=== PATIENT | female | born 1985 | race Caucasian/White ===

== ENCOUNTER 2018-09-15 01:09 | Inpatient (IN) | payer OTHER, BC ==
[2018-09-15] MEDS: SOD CHLORIDE 0.9% 1,000 ML IV ×4 (02:44→16:09)
[2018-09-15] MEDS: KETOROLAC 15 MG INJ IV (02:55)
[2018-09-15] MEDS: ONDANSETRON 4 MG INJ IV (02:55)
[2018-09-15 02:57] LABS: ADD MAN DIFF? NO
[2018-09-15 02:58] LABS: BASOPHILS % 0.2 % (0.0-2.0); HEMOGLOBIN 11.3 g/dl (12.0-16.0); LYMPHOCYTES # 1.1 10^3/ul (0.8-2.9); LYMPHOCYTES % 5.3 % (15.0-51.0); MEAN CORPUSCULAR HEMOGLOBIN 28.4 pg (29.0-33.0); MEAN CORPUSCULAR HGB CONC 32.3 g/dl (32.0-37.0); MEAN CORPUSCULAR VOLUME 87.9 fl (82.0-101.0); MEAN PLATELET VOLUME 9.7 fl (7.4-10.4); MONOCYTE # 1.1 10^3/ul (0.3-0.9); MONOCYTES % 5.1 % (0.0-11.0); NEUTROPHIL # 18.4 10^3/ul (1.6-7.5); NEUTROPHILS % 88.3 % (39.0-77.0); PLATELET COUNT 223 10^3/UL (140-415); RED BLOOD COUNT 3.98 10^6/ul (4.20-5.40); RED CELL DISTRIBUTION WIDTH 14.5 % (11.5-14.5)
[2018-09-15 02:58] LABS: WHITE BLOOD COUNT 20.8 10^3/ul (4.8-10.8)
[2018-09-15 03:02] LABS: POSITIVE DIFF @See below
[2018-09-15 03:17] LABS: INR 1.06; PROTIME 13.9 Sec (11.9-14.9); PT RATIO 1.1
[2018-09-15 03:26] LABS: ADD UMIC YES; UR ASCORBIC ACID NEGATIVE (NEGATIVE); UR BILIRUBIN (Dip) NEGATIVE (NEGATIVE); UR BLOOD (Dip) 1+ mg/dL (NEGATIVE); UR CLARITY SLIGHTLY CLOUDY (CLEAR); UR COLOR YELLOW (YELLOW); UR GLUCOSE (Dip) NEGATIVE (NEGATIVE); UR KETONES (Dip) 1+ mg/dL (NEGATIVE); UR LEUKOCYTE ESTERASE (Dip) 2+ Leu/ul (NEGATIVE); UR NITRITE (Dip) NEGATIVE (NEGATIVE); UR RBC 7 /HPF (0-5); UR SPECIFIC GRAVITY (Dip) 1.016 (1.003-1.030); UR SQUAMOUS EPITHELIAL CELL FEW /HPF (FEW); UR TOTAL PROTEIN (Dip) 1+ mg/dl (NEGATIVE); UR UROBILINOGEN (Dip) NEGATIVE (NEGATIVE); UR WBC 70 /HPF (0-5)
[2018-09-15 03:27] LABS: ALANINE AMINOTRANSFERASE 53 IU/L (13-69); ALBUMIN 3.4 g/dl (3.3-4.9); ALBUMIN/GLOBULIN RATIO 0.97; ALKALINE PHOSPHATASE 116 IU/L (42-121); ANION GAP 9 (5-13); ASPARTATE AMINO TRANSFERASE 50 IU/L (15-46); BILIRUBIN,INDIRECT 0.3 mg/dl (0-1.1); BILIRUBIN,TOTAL 0.3 mg/dl (0.2-1.3); BLOOD UREA NITROGEN 11 mg/dl (7-20); CALCIUM 8.8 mg/dl (8.4-10.2); CARBON DIOXIDE 20 mmol/L (21-31); CHLORIDE 108 mmol/L (97-110); CREATININE 0.72 mg/dl (0.44-1.00); Estimated GFR > 60 mL/min (>60); GLUCOSE 111 mg/dl (70-220); LIPASE 28 U/L (23-300); SODIUM 137 mmol/L (135-144); TOTAL PROTEIN 6.9 g/dl (6.1-8.1)
[2018-09-15] MEDS: PIPER-TAZO 3.375 GM IV (PMX) 100 ML IVPB (05:27)
[2018-09-15] MEDS ORDERED: BISACODYL (EC) 5 MG TAB PO (06:30)
[2018-09-15] MEDS ORDERED: DOCUSATE SODIUM 100 MG CAP PO (06:30)
[2018-09-15] MEDS ORDERED: NACL 0.9% 3 ML SYG IV (06:30)
[2018-09-15] MEDS: TAMSULOSIN (SR) 0.4 MG CAP PO ×2 (06:55→20:17)
[2018-09-15] MEDS: HYDROmorphONE 0.5 MG/0.5 ML SYG IV ×3 (09:33→20:14)
[2018-09-15] MEDS: CEFTRIAXONE 2 GM/50 ML (PMX) 50 ML IVPB (09:38)
[2018-09-15] MEDS: ACETAMINOPHEN 325 MG TAB PO ×2 (16:06→22:54)
[2018-09-15] MEDS: POLYETHYLENE GLYCOL 17 GM PACKET PO (20:17)
[2018-09-16] MEDS: SOD CHLORIDE 0.9% 1,000 ML IV ×3 (00:36→22:12)
[2018-09-16] MEDS: HYDROmorphONE 0.5 MG/0.5 ML SYG IV ×5 (00:42→21:20)
[2018-09-16] MEDS: ACETAMINOPHEN 325 MG TAB PO (05:58)
[2018-09-16 06:46] LABS: HEMATOCRIT 33.1 % (37.0-47.0); HEMOGLOBIN 10.4 g/dl (12.0-16.0); MEAN CORPUSCULAR HEMOGLOBIN 27.8 pg (29.0-33.0); MEAN CORPUSCULAR HGB CONC 31.4 g/dl (32.0-37.0); MEAN CORPUSCULAR VOLUME 88.5 fl (82.0-101.0); MEAN PLATELET VOLUME 9.6 fl (7.4-10.4); PLATELET COUNT 241 10^3/UL (140-415); RED BLOOD COUNT 3.74 10^6/ul (4.20-5.40); RED CELL DISTRIBUTION WIDTH 14.8 % (11.5-14.5)
[2018-09-16 06:46] LABS: WHITE BLOOD COUNT 9.2 10^3/ul (4.8-10.8)
[2018-09-16 06:47] LABS: ADD MAN DIFF? YES; POSITIVE DIFF @See below
[2018-09-16 07:00] LABS: ALANINE AMINOTRANSFERASE 33 IU/L (13-69); ALBUMIN 2.8 g/dl (3.3-4.9); ALKALINE PHOSPHATASE 90 IU/L (42-121); ANION GAP 6 (5-13); ASPARTATE AMINO TRANSFERASE 31 IU/L (15-46); BILIRUBIN,INDIRECT 0.3 mg/dl (0-1.1); BILIRUBIN,TOTAL 0.3 mg/dl (0.2-1.3); BLOOD UREA NITROGEN 6 mg/dl (7-20); CALCIUM 8.1 mg/dl (8.4-10.2); CARBON DIOXIDE 24 mmol/L (21-31); CHLORIDE 108 mmol/L (97-110); CHOL/HDL RATIO 8.1 RATIO; CHOLESTEROL 138 mg/dl (100-200); CREATININE 0.68 mg/dl (0.44-1.00); Estimated GFR > 60 mL/min (>60); GLUCOSE 102 mg/dl (70-220); HDL CHOLESTEROL 17 mg/dl (34-82); LDL CHOLESTEROL,CALCULATED 58 mg/dl; MAGNESIUM 1.9 mg/dl (1.7-2.5); POTASSIUM 4.6 mmol/L (3.5-5.1); SODIUM 138 mmol/L (135-144); TOTAL PROTEIN 5.9 g/dl (6.1-8.1); TRIGLYCERIDES 313 mg/dl (0-149)
[2018-09-16 07:09] LABS: HEMOGLOBIN A1C 5.4 % (0-5.9)
[2018-09-16 07:17] LABS: INR 0.99; PROTIME 13.2 Sec (11.9-14.9)
[2018-09-16 07:18] LABS: PARTIAL THROMBOPLASTIN TIME 30.8 Sec (23.0-35.0)
[2018-09-16 07:53] LABS: PHOSPHORUS 4.1 mg/dl (2.5-4.9)
[2018-09-16] MEDS: CEFTRIAXONE 2 GM/50 ML (PMX) 50 ML IVPB (08:40)
[2018-09-16] MEDS: POLYETHYLENE GLYCOL 17 GM PACKET PO ×2 (09:00→21:20)
[2018-09-16 09:25] LABS: FREE T4 (FREE THYROXINE) 1.39 ng/dl (0.79-2.35)
[2018-09-16 09:33] LABS: ANISOCYTOSIS 1+ (0-0); BAND NEUTROPHILS #M 2.2 10^3/ul (0.0-0.6); BAND NEUTROPHILS % (M) 24 % (0-4); BASOPHILS % (M) 1 % (0-2); BURR CELLS 3+ (0-0); EOSINOPHILS % (M) 1 % (0-7); GIANT THROMBO% (M) 10 % (0-0); LYMPHOCYTES #M 1.1 10^3/ul (0.8-2.9); LYMPHOCYTES % (M) 13 % (15-51); MONOCYTE #M 0.5 10^3/ul (0.3-0.9); MONOCYTES % (M) 6 % (0-11); PLATELET ESTIMATE NORMAL; POIKILOCYTOSIS 3+ (0-0); POLYCHROMASIA 1+ (0-0); SEG NEUT #M 5.3 10^3/ul (1.6-7.5); SEGMENTED NEUTROPHILS (M) % 55 % (39-77); SMUDGE%M 59 % (0-0)
[2018-09-16] MEDS: ONDANSETRON 4 MG INJ IV (09:59)
[2018-09-16 10:07] LABS: THYROID STIMULATING HORMONE 0.872 MIU/L (0.465-4.680)
[2018-09-16] MEDS: ACETAMINOPHEN 650 MG SUPP PR (13:00)
[2018-09-16] MEDS ORDERED: FENTAnyl 50 MCG/ML VIAL (17:59)
[2018-09-16] MEDS ORDERED: MIDAZOLAM 1 MG/ML 2 ML INJ ×2 (17:59→19:10)
[2018-09-16] MEDS ORDERED: LIDOCAINE 2% (SDV) 5 ML INJ (18:40)
[2018-09-16] MEDS ORDERED: GLYCOPYRROLATE 0.4 MG INJ (18:40)
[2018-09-16] MEDS ORDERED: PROPOFOL 20 ML (18:40)
[2018-09-16] MEDS ORDERED: NEOSTIGMINE 3 MG/3 ML SYRINGE (18:40)
[2018-09-16] MEDS ORDERED: ROCURONIUM 50 MG INJ (18:40)
[2018-09-16] MEDS ORDERED: ONDANSETRON 4 MG INJ (18:41)
[2018-09-16] MEDS ORDERED: PROVENTIL HFA 6.7GM INHALER (19:00)
[2018-09-16] MEDS ORDERED: ALBUTEROL 0.5% (NEB) 2.5 MG/0.5 ML AMP (19:23)
[2018-09-16] MEDS ORDERED: DIPHENHYDRAMINE 50 MG INJ IV (19:30)
[2018-09-16] MEDS ORDERED: MIDAZOLAM 1 MG/ML 2 ML INJ IV (19:30)
[2018-09-16] MEDS ORDERED: ONDANSETRON 4 MG INJ IV (19:30)
[2018-09-16] MEDS ORDERED: HYDROmorphONE 1 MG/5 ML IV SYRINGE IV ×2 (19:30)
[2018-09-16] MEDS ORDERED: FENTAnyl 50 MCG/ML VIAL IV (19:30)
[2018-09-16] MEDS ORDERED: MEPERIDINE 25 MG INJ IV (19:30)
[2018-09-16] MEDS ORDERED: LORAZEPAM 2 MG INJ IV (19:30)
[2018-09-16] MEDS ORDERED: LEVALBUTEROL (NEB) 1.25 MG/0.5 ML AMP HHN (19:30)
[2018-09-16] MEDS ORDERED: METOCLOPRAMIDE 10 MG INJ IV (19:30)
[2018-09-16] MEDS: ACETAMINOPHEN 1000MG/100ML IV 100 ML IVPB (19:34)
[2018-09-16] MEDS: ALBUTEROL 0.083% (NEB) 2.5 MG/3 ML AMP HHN (19:35)
[2018-09-16] MEDS: MIDAZOLAM 1 MG/ML 2 ML INJ IV ×2 (19:59→20:05)
[2018-09-16] MEDS: TAMSULOSIN (SR) 0.4 MG CAP PO (21:20)
[2018-09-17] MEDS: SOD CHLORIDE 0.9% 1,000 ML IV ×3 (02:24→22:12)
[2018-09-17] MEDS: HYDROmorphONE 0.5 MG/0.5 ML SYG IV ×2 (02:50→06:50)
[2018-09-17] MEDS: ACETAMINOPHEN 325 MG TAB PO (04:07)
[2018-09-17] MEDS: ONDANSETRON 4 MG INJ IV (08:35)
[2018-09-17] MEDS: POLYETHYLENE GLYCOL 17 GM PACKET PO ×2 (08:36→21:27)
[2018-09-17] MEDS: CEFTRIAXONE 2 GM/50 ML (PMX) 50 ML IVPB (08:52)
[2018-09-17] MEDS: HYDROmorphONE 1 MG/ML SYG IV ×3 (10:46→19:52)
[2018-09-17] MEDS: LEVOFLOXACIN 750MG/D5W (PMX) 150 ML IVPB (17:37)
[2018-09-17] MEDS: BACLOFEN 10 MG TAB PO (17:51)
[2018-09-17] MEDS: TAMSULOSIN (SR) 0.4 MG CAP PO (21:28)
[2018-09-18] MEDS: HYDROmorphONE 1 MG/ML SYG IV ×6 (00:07→22:54)
[2018-09-18] MEDS: IBUPROFEN 600 MG TAB PO ×2 (02:37→12:28)
[2018-09-18] MEDS: SOD CHLORIDE 0.9% 1,000 ML IV (05:34)
[2018-09-18] MEDS: POLYETHYLENE GLYCOL 17 GM PACKET PO ×2 (08:22→20:17)
[2018-09-18 11:47] LABS: ADD MAN DIFF? NO
[2018-09-18 11:49] LABS: BASOPHILS % 0.3 % (0.0-2.0); EOSINOPHILS # 0.2 10^3/ul (0.0-0.5); EOSINOPHILS % 2.7 % (0.0-7.0); HEMATOCRIT 32.1 % (37.0-47.0); HEMOGLOBIN 10.3 g/dl (12.0-16.0); LYMPHOCYTES # 1.6 10^3/ul (0.8-2.9); LYMPHOCYTES % 23.4 % (15.0-51.0); MEAN CORPUSCULAR HEMOGLOBIN 28.2 pg (29.0-33.0); MEAN CORPUSCULAR HGB CONC 32.1 g/dl (32.0-37.0); MEAN CORPUSCULAR VOLUME 87.9 fl (82.0-101.0); MEAN PLATELET VOLUME 8.9 fl (7.4-10.4); MONOCYTE # 0.7 10^3/ul (0.3-0.9); MONOCYTES % 10.9 % (0.0-11.0); NEUTROPHIL # 4.1 10^3/ul (1.6-7.5); NEUTROPHILS % 61.2 % (39.0-77.0); PLATELET COUNT 288 10^3/UL (140-415); RED BLOOD COUNT 3.65 10^6/ul (4.20-5.40)
[2018-09-18 11:49] LABS: WHITE BLOOD COUNT 6.7 10^3/ul (4.8-10.8)
[2018-09-18 12:06] LABS: ANION GAP 5 (5-13); BLOOD UREA NITROGEN 5 mg/dl (7-20); CALCIUM 8.1 mg/dl (8.4-10.2); CARBON DIOXIDE 27 mmol/L (21-31); CHLORIDE 107 mmol/L (97-110); Estimated GFR > 60 mL/min (>60); GLUCOSE 117 mg/dl (70-220); MAGNESIUM 2.2 mg/dl (1.7-2.5); POTASSIUM 4.4 mmol/L (3.5-5.1); SODIUM 139 mmol/L (135-144)
[2018-09-18 12:06] LABS: PHOSPHORUS 3.7 mg/dl (2.5-4.9)
[2018-09-18] MEDS: LEVOFLOXACIN 750MG/D5W (PMX) 150 ML IVPB (17:26)
[2018-09-18] MEDS: TAMSULOSIN (SR) 0.4 MG CAP PO (20:17)
[2018-09-19] MEDS: HYDROmorphONE 1 MG/ML SYG IV (03:52)
[2018-09-19] MEDS: IBUPROFEN 600 MG TAB PO (05:53)
[2018-09-19 05:56] LABS: ADD MAN DIFF? NO
[2018-09-19 06:06] LABS: BASOPHILS % 0.4 % (0.0-2.0); EOSINOPHILS # 0.3 10^3/ul (0.0-0.5); EOSINOPHILS % 5.2 % (0.0-7.0); HEMATOCRIT 29.7 % (37.0-47.0); HEMOGLOBIN 9.5 g/dl (12.0-16.0); LYMPHOCYTES # 1.5 10^3/ul (0.8-2.9); LYMPHOCYTES % 26.6 % (15.0-51.0); MEAN CORPUSCULAR HEMOGLOBIN 27.7 pg (29.0-33.0); MEAN CORPUSCULAR VOLUME 86.6 fl (82.0-101.0); MEAN PLATELET VOLUME 8.9 fl (7.4-10.4); MONOCYTE # 0.6 10^3/ul (0.3-0.9); MONOCYTES % 10.9 % (0.0-11.0); NEUTROPHIL # 3.1 10^3/ul (1.6-7.5); NEUTROPHILS % 55.6 % (39.0-77.0); PLATELET COUNT 327 10^3/UL (140-415); RED BLOOD COUNT 3.43 10^6/ul (4.20-5.40); RED CELL DISTRIBUTION WIDTH 15.1 % (11.5-14.5)
[2018-09-19 06:06] LABS: WHITE BLOOD COUNT 5.6 10^3/ul (4.8-10.8)
[2018-09-19] MEDS: DIPHENHYDRAMINE 50 MG CAP PO (06:41)
[2018-09-19 06:51] LABS: ANION GAP 4 (5-13); BLOOD UREA NITROGEN 4 mg/dl (7-20); CARBON DIOXIDE 26 mmol/L (21-31); CHLORIDE 110 mmol/L (97-110); CREATININE 0.58 mg/dl (0.44-1.00); Estimated GFR > 60 mL/min (>60); GLUCOSE 90 mg/dl (70-220); POTASSIUM 3.7 mmol/L (3.5-5.1); SODIUM 140 mmol/L (135-144)
[2018-09-19 07:03] LABS: PHOSPHORUS 4.8 mg/dl (2.5-4.9)
[2018-09-19] MEDS: POLYETHYLENE GLYCOL 17 GM PACKET PO (09:00)
== END 2018-09-19 13:30 | disposition home or self-care (01) | DRG 854 ==
LOC: FTE 01:09 → PP2 05:17
PROC: 0T768DZ Dilation of Right Ureter with Intraluminal Device, Via Natural or Artificial Opening Endoscopic (ICD-10-PCS; principal; 2018-09-16 17:30)
DX: A41.9 Sepsis, unspecified organism (principal); N39.0 Urinary tract infection, site not specified; N13.2 Hydronephrosis with renal and ureteral calculous obstruction; B96.20 Unspecified Escherichia coli [E. coli] as the cause of diseases classified elsewhere; Z87.442 Personal history of urinary calculi; E78.5 Hyperlipidemia, unspecified
CPT/HCPCS: 36415; 71045; 74018; 74176; 74430; 80048; 80053; 80061; 81001; 81025; 83036; 83690; 83735; 84100; 84439; 84443; 85025; 85610; 85730; 87040-91; 87086; 96361; 96374; 96375; 99285-25